=== PATIENT | male | born 1960 | race Two or more races ===

== ENCOUNTER 2024-04-01 19:51 | Emergency (ER) | payer OTHER, MEDICAID ==
[~2024-04-01] VITALS: Ht 175.3 cm; Wt 80.0 kg
[2024-04-01 20:15] VITALS: BP 122/74; PULSE 82; RESP 18; TEMP 98.1
[2024-04-01] MEDS ORDERED: CLIN1CAP70 PO (21:53)
[2024-04-01] MEDS ORDERED: CEPH500C PO (21:53)
[2024-04-01] MEDS ORDERED: ACET500T58 PO (21:53)
[2024-04-01 22:21] VITALS: O2SAT 97
[2024-04-01] MEDS: cefTRIAXone SOD 1,000 MG VL IM ONE (22:46)
== END 2024-04-01 23:02 | disposition home or self-care (01) ==
LOC: ER 19:51
DX: S81.802A Unspecified open wound, left lower leg, initial encounter (principal); L03.116 Cellulitis of left lower limb; I10 Essential (primary) hypertension; M10.9 Gout, unspecified; Z98.890 Other specified postprocedural states; Z79.899 Other long term (current) drug therapy; W21.03XA Struck by baseball, initial encounter; Y93.64 Activity, baseball; Y92.89 Other specified places as the place of occurrence of the external cause; Y99.8 Other external cause status
CPT/HCPCS: 96372; 99283; J0696